=== PATIENT | female | born 1935 | race African-American/Black ===

== ENCOUNTER 2019-03-21 00:33 | Emergency (ER) | payer MEDICAID, MEDICARE ==
[~2019-03-21] VITALS: Ht 160 cm; Wt 110.0 kg
[~2019-03-21 00:33] MED LIST: ADV50250 IH; BENA40TA73 PO; CARV12.5 PO; DILT60CA2 PO; FURO-150 PO; GABA-338 PO; INSU100V36 SQ; IPRA12.94 IH; ISOS10TA54 PO; LANTUS SQ; NITR0.4T51 SL; OMEP-84 PO; ONDA4TAB6 PO; POTA10TA10 PO; SIN25C PO; SYN0.075T PO
--- NOTE | 2019-03-21 00:49 | NUR ---
informed Jose Luis staples that I would like IVF with dextrose.
[2019-03-21] MEDS ORDERED: sodium bicarbonate (8.4%) inj. 100 MEQ in dextrose 5%-water 900 ML IV ONE (00:53)
[2019-03-21] MEDS ORDERED: dextrose 5%-water 1,000 ML IV SCH (01:01)
--- NOTE | 2019-03-21 01:48 | NUR ---
current vss, accucheck 108.
--- NOTE | 2019-03-21 03:00 | NUR ---
accucheck now 79, n deric staples and dr. villeda notified. pt continues with d5 at 150 infusing. just given turkey and cheese sandwich, juice and yogurt. pt is mentating well , at baseline. Stable vs.
--- NOTE | 2019-03-21 03:38 | NUR ---
Pt with stable vs. Accucheck 105 now, after eating sandwich and some yogurt. Dr. Gilbert aware. He reports we will continue to monitor patient for a few hrs.
--- NOTE | 2019-03-21 04:38 | NUR ---
dr villeda updated of pts accucheck 114 and that d5 ns bag of 500 ccs just completed. requests to continue infusion and he anticipates dc w/ in the hr. Pt is agreeable to this plan and reports she brother rajwinder will pick her up and her son, mireille, will be at her house bet 7-7:30 and have bkfst with her.
--- NOTE | 2019-03-21 05:35 | NUR ---
CALLED BROTHER BRE [phone] LEFT MESSAGE TO CALL BACK, PT SAYS HE IS HER RIDE HOME
[2019-03-21 05:49] VITALS: BP 123/58
--- NOTE | 2019-03-21 07:13 | NUR ---
ATTEMTED TO CALL FAMILY TO [facility]IN[facility] OPERATOR PT. WRONG NUMBER IN CHART, PT DOES NOT KNOW ANYONES NUMBER TO CALL. TAXI CALLED TO TAKE PT HOME. PT TAKEN OUT OF ED WITH W/C TO WAIT FOR TAXI OUTSIDE PER TAXI REQUEST.
== END 2019-03-21 07:17 | disposition home or self-care (01) ==
LOC: ER 00:34
DX: T38.3X1A Poisoning by insulin and oral hypoglycemic [antidiabetic] drugs, accidental (unintentional), initial encounter (principal); E11.649 Type 2 diabetes mellitus with hypoglycemia without coma; E78.00 Pure hypercholesterolemia, unspecified; I10 Essential (primary) hypertension; J44.9 Chronic obstructive pulmonary disease, unspecified; K21.9 Gastro-esophageal reflux disease without esophagitis; E11.9 Type 2 diabetes mellitus without complications; E03.9 Hypothyroidism, unspecified; G89.29 Other chronic pain; F32.9 Major depressive disorder, single episode, unspecified; Z98.890 Other specified postprocedural states; Z88.6 Allergy status to analgesic agent; Z91.012 Allergy to eggs; Z88.8 Allergy status to other drugs, medicaments and biological substances; Z79.4 Long term (current) use of insulin; Y92.89 Other specified places as the place of occurrence of the external cause
CPT/HCPCS: 82948; 99284; J7070; J7030

== ENCOUNTER 2019-03-21 21:09 | Emergency (ER) | payer MEDICARE ==
[~2019-03-21] VITALS: Ht 160 cm; Wt 119.0 kg
[2019-03-21 21:56] LABS: BASOPHILS % (AUTO) 0.2 % (0-1); EOSINOPHILS # (AUTO) 0.3 X10'3 (0-0.9); EOSINOPHILS % (AUTO) 3.4 % (0-6); HEMATOCRIT 35.2 % (35.0-45.0); HEMOGLOBIN 11.6 g/dl (12.0-16.0); LYMPHOCYTES # (AUTO) 1.8 X10'3 (1.1-4.8); LYMPHOCYTES % (AUTO) 23.6 % (21-51); MEAN CORPUSCULAR HEMOGLOBIN 29.6 PG (27.0-31.0); MEAN CORPUSCULAR HGB CONC 32.9 g/dL (33.0-36.5); MEAN CORPUSCULAR VOLUME 90.1 FL (78-98); MEAN PLATELET VOLUME 8.4 FL (7.4-10.4); MONOCYTES % (AUTO) 12.7 % (2-12); NEUTROPHILS # (AUTO) 4.7 X10'3 (1.8-7.7); NEUTROPHILS % (AUTO) 60.1 % (42-75); PLATELET COUNT 205 X10'3 (140-440); RED BLOOD COUNT 3.91 X10'6 (4.20-5.60); RED CELL DISTRIBUTION WIDTH 16.1 % (11.5-14.5); WHITE BLOOD COUNT 7.8 X10'3 (4.5-11.0)
[2019-03-21 22:13] LABS: PARTIAL THROMBOPLASTIN TIME 40 SECONDS (22-32)
[2019-03-21 22:16] LABS: ALANINE AMINOTRANSFERASE 16 U/L (12-78); ALBUMIN 2.8 G/DL (3.4-5.0); ALBUMIN/GLOBULIN RATIO 0.8 (1.1-1.5); ALKALINE PHOSPHATASE 71 IU/L (46-116); ANION GAP 7 (8-16); ASPARTATE AMINO TRANSFERASE 17 U/L (10-37); BILIRUBIN,TOTAL 0.4 MG/DL (0.1-1.0); BLOOD UREA NITROGEN 38 MG/DL (7-18); BUN/CREATININE RATIO 19.1 (6.6-38.0); CALCIUM 8.7 MG/DL (8.5-10.1); CHLORIDE 111 MMOL/L (99-107); CREATININE 1.99 MG/DL (0.40-0.90); ETHANOL < 0.010 GM/DL (0.0-0.010); GLUCOSE 79 MG/DL (70-104); POTASSIUM 4.4 MMOL/L (3.5-5.1); SODIUM 145 MMOL/L (135-145); TOTAL CARBON DIOXIDE 27.1 MMOL/L (24-32); TOTAL PROTEIN 6.3 G/DL (6.4-8.2); eGFR 29 ML/MIN
[2019-03-21 22:31] LABS: CLARITY,URINE CLEAR (Clear); COLOR,URINE YELLOW (Yellow); GLUCOSE, URINE NEGATIVE (Neg); KETONES,URINE TRACE mg/dl (Neg); LEUKOCYTE ESTERASE ,URINE NEGATIVE (Neg); NITRITES, URINE NEGATIVE (Neg); OCCULT BLOOD,URINE NEGATIVE (Neg); PROTEIN,URINE NEGATIVE (Neg); UROBILINOGEN,URINE 0.2 E.U/dL (0.2-1.0)
[2019-03-21 22:32] LABS: UA COLLECTION TYPE STRAIGHT CATH
--- NOTE | 2019-03-21 23:12 | NUR ---
daughter: valentien [phone]
[2019-03-22 02:17] VITALS: BP 106/52
== END 2019-03-22 02:27 | disposition home or self-care (01) ==
LOC: ER 21:10
DX: T38.3X1A Poisoning by insulin and oral hypoglycemic [antidiabetic] drugs, accidental (unintentional), initial encounter (principal); E11.649 Type 2 diabetes mellitus with hypoglycemia without coma; E66.01 Morbid (severe) obesity due to excess calories; E78.00 Pure hypercholesterolemia, unspecified; I10 Essential (primary) hypertension; J44.9 Chronic obstructive pulmonary disease, unspecified; K21.9 Gastro-esophageal reflux disease without esophagitis; E11.9 Type 2 diabetes mellitus without complications; E03.9 Hypothyroidism, unspecified; G89.29 Other chronic pain; F32.9 Major depressive disorder, single episode, unspecified; Z98.890 Other specified postprocedural states; Z88.6 Allergy status to analgesic agent; Z79.4 Long term (current) use of insulin; Z91.012 Allergy to eggs; Z88.8 Allergy status to other drugs, medicaments and biological substances; Z79.899 Other long term (current) drug therapy; Y92.89 Other specified places as the place of occurrence of the external cause
CPT/HCPCS: 36415; 71045; 80053; 80320; 81003; 82140; 82948; 85025; 85610; 85730; 93005; 99284; P9612

== ENCOUNTER 2020-10-18 00:21 | Emergency (ER) | payer MEDICARE, MEDICAID ==
[~2020-10-18] VITALS: Ht 165.1 cm; Wt 88.6 kg
[2020-10-18] MEDS ORDERED: normal saline 1000ML IV soln IVB ONE ×2 (00:30→01:50)
[2020-10-18 01:43] LABS: ALANINE AMINOTRANSFERASE 17 U/L (12-78); ALBUMIN 3.2 G/DL (3.4-5.0); ALBUMIN/GLOBULIN RATIO 0.9 (1.1-1.5); ALKALINE PHOSPHATASE 80 IU/L (46-116); ANION GAP 11 (8-16); ASPARTATE AMINO TRANSFERASE 17 U/L (10-37); BILIRUBIN,TOTAL 0.3 MG/DL (0.1-1.0); BLOOD UREA NITROGEN 40 MG/DL (7-18); BUN/CREATININE RATIO 24.2 (6.6-38.0); CALCIUM 9.6 MG/DL (8.5-10.1); CHLORIDE 113 MMOL/L (99-107); CREATININE 1.65 MG/DL (0.40-0.90); GLUCOSE 131 MG/DL (70-104); POTASSIUM 5.2 MMOL/L (3.5-5.1); SODIUM 148 MMOL/L (135-145); TOTAL CARBON DIOXIDE 24.1 MMOL/L (24-32); TOTAL PROTEIN 6.7 G/DL (6.4-8.2); eGFR 36 ML/MIN
[2020-10-18 01:58] LABS: CLARITY,URINE CLEAR (Clear); COLOR,URINE YELLOW (Yellow); GLUCOSE, URINE NEGATIVE (Neg); KETONES,URINE NEGATIVE (Neg); LEUKOCYTE ESTERASE ,URINE NEGATIVE (Neg); NITRITES, URINE NEGATIVE (Neg); OCCULT BLOOD,URINE NEGATIVE (Neg); PH,URINE 5.5 (4.8-8.0); PROTEIN,URINE NEGATIVE (Neg); UROBILINOGEN,URINE 0.2 E.U/dL (0.2-1.0)
[2020-10-18 01:58] LABS: BASOPHILS % (AUTO) 0.5 % (0-1); EOSINOPHILS # (AUTO) 0.2 X10'3 (0-0.9); EOSINOPHILS % (AUTO) 3.5 % (0-6); HEMATOCRIT 37.4 % (35.0-45.0); HEMOGLOBIN 12.1 g/dl (12.0-16.0); LYMPHOCYTES # (AUTO) 1.7 X10'3 (1.1-4.8); LYMPHOCYTES % (AUTO) 24.7 % (21-51); MEAN CORPUSCULAR HEMOGLOBIN 30.3 PG (27.0-31.0); MEAN CORPUSCULAR HGB CONC 32.3 g/dL (33.0-36.5); MEAN CORPUSCULAR VOLUME 93.8 FL (78-98); MEAN PLATELET VOLUME 9.6 FL (7.4-10.4); MONOCYTES # (AUTO) 0.7 X10'3 (0-0.9); MONOCYTES % (AUTO) 10.4 % (2-12); NEUTROPHILS # (AUTO) 4.2 X10'3 (1.8-7.7); NEUTROPHILS % (AUTO) 60.9 % (42-75); PLATELET COUNT 162 X10'3 (140-440); RED BLOOD COUNT 3.98 X10'6 (4.20-5.60); RED CELL DISTRIBUTION WIDTH 17.4 % (11.5-14.5); WHITE BLOOD COUNT 6.8 X10'3 (4.5-11.0)
[2020-10-18 02:12] LABS: UA COLLECTION TYPE STRAIGHT CATH
[2020-10-18 02:54] VITALS: BP 125/57
[2020-10-18 03:08] LABS: ALBUMIN 2.8 G/DL (3.4-5.0); ANION GAP 10 (8-16); BLOOD UREA NITROGEN 36 MG/DL (7-18); BUN/CREATININE RATIO 26.1 (6.6-38.0); CALCIUM 8.8 MG/DL (8.5-10.1); CHLORIDE 116 MMOL/L (99-107); CREATININE 1.38 MG/DL (0.40-0.90); GLUCOSE 122 MG/DL (70-104); POTASSIUM 4.4 MMOL/L (3.5-5.1); SODIUM 148 MMOL/L (135-145); TOTAL CARBON DIOXIDE 22.1 MMOL/L (24-32); eGFR 44 ML/MIN
--- NOTE | 2020-10-18 03:30 | NUR ---
Pt. easily arousable, AOX3. Her VSS. Pt. able to understand discharge education. She was assisted to wheelchair, which she performed with minimum assist of 1 person. Otherwise, pt. mentation is WNL and she is in good spirits upon dc.
== END 2020-10-18 03:44 | disposition home or self-care (01) ==
LOC: ER 00:21
DX: R41.0 Disorientation, unspecified (principal); E86.0 Dehydration; E87.5 Hyperkalemia; E78.00 Pure hypercholesterolemia, unspecified; I10 Essential (primary) hypertension; J45.909 Unspecified asthma, uncomplicated; J44.9 Chronic obstructive pulmonary disease, unspecified; K21.9 Gastro-esophageal reflux disease without esophagitis; E11.9 Type 2 diabetes mellitus without complications; E03.9 Hypothyroidism, unspecified; G89.29 Other chronic pain; F32.9 Major depressive disorder, single episode, unspecified; Z90.89 Acquired absence of other organs; Z60.2 Problems related to living alone; Z88.6 Allergy status to analgesic agent; Z91.012 Allergy to eggs; Z88.8 Allergy status to other drugs, medicaments and biological substances; Z79.4 Long term (current) use of insulin; Z79.899 Other long term (current) drug therapy
CPT/HCPCS: 36415; 70450; 71045; 80048; 80053; 81003; 85025; 93005; 99285; J7030

== ENCOUNTER 2020-12-13 02:34 | Emergency (ER) | payer MEDICARE, MEDICAID ==
[~2020-12-13] VITALS: Ht 162.6 cm; Wt 127.0 kg
[2020-12-13 02:42] VITALS: BP 125/68
== END 2020-12-13 04:50 | disposition home or self-care (01) ==
LOC: ER 02:35
DX: G89.29 Other chronic pain (principal); R53.1 Weakness; M79.605 Pain in left leg; E78.00 Pure hypercholesterolemia, unspecified; I10 Essential (primary) hypertension; J44.9 Chronic obstructive pulmonary disease, unspecified; K21.9 Gastro-esophageal reflux disease without esophagitis; E11.9 Type 2 diabetes mellitus without complications; E03.9 Hypothyroidism, unspecified; F32.9 Major depressive disorder, single episode, unspecified; Z90.89 Acquired absence of other organs; Z60.2 Problems related to living alone; Z88.6 Allergy status to analgesic agent; Z91.012 Allergy to eggs; Z88.8 Allergy status to other drugs, medicaments and biological substances; Z79.899 Other long term (current) drug therapy
CPT/HCPCS: 99283